=== PATIENT | male | born 1950 | race Caucasian/White ===

== ENCOUNTER → 2017-04-21 | Outpatient (REF) | payer MEDICARE ==
[~2017-04-21] MED LIST: ALBU2.5V36 INH; ALBU8.5H IH; AMLO-1 PO; AMLO-96 PO; ASCO-182 PO; ASPI81TA94 PO; AZIT-1 PO; BENA40TA52 PO; CALC500T6 PO; CPAP NS; GLUC1TAB66 PO; GUAI-561 PO; LECI400C PEG; METH500C6 PO; SILD100T59 PO; SIMV-54 PO
== END ==
LOC: ZZSENDIN 10:17
PROVIDERS: ATTEND Physician Assistant
DX: Z02.79 Encounter for issue of other medical certificate (principal)
CPT/HCPCS: 81001